=== PATIENT | male | born 1990 | race Caucasian/White ===

== ENCOUNTER 2017-04-08 18:17 | Emergency (ER) | payer SELFPAY ==
[2017-04-08 18:32] VITALS: BP 131/68; PULSE 80; TEMP 98.7; BMI 23.1
[2017-04-08] MEDS ORDERED: predniSONE 20 MG TABLET (UD) PO ONE (20:02)
[2017-04-08] MEDS ORDERED: ALBUTEROL SO4 2.5/IPRATROPIUM 0.5 INH SOL 3 ML VIAL.NEB. NEB ONE ×2 (20:02→20:19)
--- NOTE | 2017-04-08 20:11 | PDOC ---
History of Present Illness - General Chief Complaint: Cold Symptoms Stated Complaint: SHORT OF BREATH, COUGH Time Seen by Provider: 04/08/17 19:33 History Source: Patient Exam Limitations: No Limitations - History of Present Illness Initial Comments: 04/08/17 20:06 27 yo M with h/o childhood asthma has n't had sxs since 5 yo, here with c/o subjective fever, and cough and wheezing for 3 days. no longer having fever. no chilld. cough phlegm. does also have nasal congestion. no sick contacts. no h/o intubation or icu visits no current medication does not have an inhaler at home. no other rash. n/v or abd pain. no chest pain. Past History - Past Medical History Allergies/Adverse Reactions: Allergies Allergy/AdvReac Type Severity Reaction Status Date / Time No Known Allergies Allergy Verified 04/08/17 18:23 Home Medications: Ambulatory Orders Albuterol Sulfate Inhaler - [Ventolin HFA Inhaler -] 2 puff IH Q4H PRN #1 inhaler 04/08/17 Prednisone [Deltasone] 20 mg PO BID #8 tablet MDD 2 04/08/17 Asthma: Yes (CHILDHOOD) - Psycho/Social/Smoking Cessation Hx Anxiety: No Suicidal Ideation: No Smoking History: Never smoked Hx Alcohol Use: No Drug/Substance Use Hx: No Substance Use Type: None Review of Systems - Review of Systems Constitutional: No: Chills, Weakness HEENTM: No: Blurred Vision Respiratory: Yes: Shortness of Breath, Wheezing. No: Cough Cardiac (ROS): No: Chest Pain, Edema ABD/GI: No: Abdominal Distended : No: Burning, Dysuria Musculoskeletal: No: Back Pain Integumentary: No: Bruising All Other Systems: Reviewed and Negative *Physical Exam - Vital Signs Last Vital Signs Temp Pulse Resp BP Pulse Ox 98.7 F 80 16 131/68 96 04/08/17 18:18 04/08/17 18:18 04/08/17 18:18 04/08/17 18:18 04/08/17 18:18 - Physical Exam General Appearance: Yes: Nourished, Appropriately Dressed HEENT: positive: EOMI, GIANNA, Other (bilat nasal turbinate enlargment. throat clear no exudate. ) Neck: positive: Trachea midline Respiratory/Chest: positive: Wheezing (bilat exp wheezing. normal effort. good airflow). negative: Chest Tender, Respiratory Distress Cardiovascular: positive: Regular Rhythm, Regular Rate, S1, S2. negative: Edema Gastrointestinal/Abdominal: positive: Normal Bowel Sounds, Flat. negative: Tender Musculoskeletal: positive: Normal Inspection Extremity: positive: Normal Capillary Refill Integumentary: positive: Normal Color, Dry, Warm Neurologic: positive: Fully Oriented, Alert, Normal Mood/Affect ED Treatment Course - RADIOLOGY Radiology Studies Ordered: Category Date Time Status CHEST PA & LAT [RAD] Stat Radiology 04/08/17 20:03 Ordered Chest X-Ray Result: No Infiltrates Medical Decision Making - Medical Decision Making 04/08/17 20:10 27 yo M with h/o childhood asthma here wtih cough, wheezign and nasal congestionx 3 days. wheezing on exam afebrile here but reports fever. plan cxr r /o pna, neb steroids reassess. [facility] outpt tx with outpt inhaler and steroids. *DC/Admit/Observation/Transfer Diagnosis at time of Disposition: Asthma exacerbation - Discharge Dispostion Disposition: HOME Condition at time of disposition: Improved Admit: No - Prescriptions Prescriptions: Prednisone [Deltasone] 20 mg PO BID #8 tablet MDD 2 Albuterol Sulfate Inhaler - [Ventolin HFA Inhaler -] 2 puff IH Q4H PRN #1 inhaler PRN Reason: Wheezing - Referrals Referrals: Scott Cardona MD [Primary Care Provider] - - Patient Instructions Printed Discharge Instructions: Asthma -- Adult, Acute Bronchitis Additional Instructions: you can use flonase nasal spray one spray each nostril daily to help with nasal congestion. use albuterol 2 puffs every 4 hours as needed for wheezing or shortness of breathl. take prednisone 20 mg twice daily x 4 days starting . return for any worsening symtpoms or concerns. follow up with your primary doctor within one week call to schedule.
[2017-04-08] MEDS ORDERED: predniSONE 20 MG TABLET (UD) ONE (20:19)
== END 2017-04-08 21:05 | disposition home or self-care (01) ==
LOC: FER 18:17
PROC: 3E0F7GC Introduction of Other Therapeutic Substance into Respiratory Tract, Via Natural or Artificial Opening (ICD-10-PCS; principal; 2017-04-08)
DX: J45.901 Unspecified asthma with (acute) exacerbation (principal)
CPT/HCPCS: 71020-TC; 99282-25

== ENCOUNTER 2017-10-24 21:53 | Emergency (ER) | payer OTHER ==
[2017-10-24] MEDS ORDERED: ALBUTEROL SO4 2.5/IPRATROPIUM 0.5 INH SOL 3 ML VIAL.NEB. NEB ONE ×2 (22:12→22:25)
[2017-10-24] MEDS ORDERED: predniSONE 20 MG TABLET (UD) PO ONE (22:12)
--- NOTE | 2017-10-24 22:14 | PDOC ---
History of Present Illness - General Chief Complaint: Cold Symptoms Stated Complaint: CHEST/NASAL CONGESTION Time Seen by Provider: 10/24/17 21:56 History Source: Patient, Significant Other Exam Limitations: No Limitations - History of Present Illness Initial Comments: 10/24/17 22:14 27M PMHx asthma (no ETT, dx as child, only 2 exacerbations as an adult) p/w cc of "cold sxs" including productive cough, sore throat, "low grade fever" and chest tightness x 4-5 days. Denies LE swelling/tnd, no recent long distance travel. No CP at rest, only occurs after coughing. +2 kids at home with similar sxs. +flu shot this yr. Past History - Past Medical History Allergies/Adverse Reactions: Allergies Allergy/AdvReac Type Severity Reaction Status Date / Time No Known Allergies Allergy Verified 04/08/17 18:23 Home Medications: Ambulatory Orders Albuterol Sulfate Inhaler - [Ventolin HFA Inhaler -] 2 puff IH Q4H PRN #1 inhaler 04/08/17 Prednisone [Deltasone] 20 mg PO BID #8 tablet MDD 2 04/08/17 Prednisone [Prednisone 50 MG TABLETS] 50 mg PO DAILY 4 Days #4 tablet 10/24/17 Asthma: Yes (CHILDHOOD) - Suicide/Smoking/Psychosocial Hx Smoking History: Never smoked Hx Alcohol Use: No Drug/Substance Use Hx: No Substance Use Type: None Review of Systems - Review of Systems Able to Perform ROS?: Yes Is the patient limited Jamaican proficient: No Constitutional: Yes: Fever ("Low grade") HEENTM: Yes: Nose Congestion, Throat Pain Respiratory: Yes: See HPI ABD/GI: No: Nausea, Vomiting : No: Dysuria Musculoskeletal: No: Back Pain Neurological: No: Headache, Numbness Psychiatric: No: Anxiety, Depression All Other Systems: Reviewed and Negative *Physical Exam - Physical Exam General Appearance: Yes: Nourished, Appropriately Dressed. No: Apparent Distress HEENT: positive: EOMI, Normal ENT Inspection, Normal Voice, Symmetrical, Pharynx Normal, Nasal Congestion. negative: Pharyngeal Erythema, Tonsillar Exudate, Tonsillar Erythema Respiratory/Chest: positive: Lungs Clear. negative: Accessory Muscle Use, Labored Respiration Cardiovascular: positive: Regular Rhythm, Regular Rate Vascular Pulses: Femoral (R): 4+, Femoral (L): 4+, Carotid (R): 4+, Carotid (L) : 4+, Dorsalis-Pedis (R): 4+, Doralis-Pedis (L): 4+ Gastrointestinal/Abdominal: positive: Soft. negative: Tender Extremity: positive: Normal Inspection. negative: Tender, Swelling, Calf Tenderness Medical Decision Making - Medical Decision Making 10/24/17 22:17 27M with asthma p/w cough and chest tightness typical of asthma exacerbation in past. Likely URI which is triggering asthma. Does report productive cough with fever, will r/o pna with CXR. - nebs - prednisone x5d, first dose here - CXR - anticipate dc home with PMD f/u 10/24/17 23:34 Pt feels much improved s/p nebs and steroids. CXR reviewed - no e/o infiltrate/ effusion. Will dc home with prednisone x 4 more days to complete 5 day course. PRN albuterol (pt has MDI), f/u with PMD, return if sxs worsen. *DC/Admit/Observation/Transfer Diagnosis at time of Disposition: Asthma exacerbation - Discharge Dispostion Disposition: HOME Condition at time of disposition: Good Admit: No - Prescriptions Prescriptions: Prednisone [Prednisone 50 MG TABLETS] 50 mg PO DAILY 4 Days #4 tablet - Referrals - Patient Instructions Printed Discharge Instructions: DI for Viral Upper Respiratory Infection -- Adult Additional Instructions: You were seen in the ER for symptoms which are likely an upper respiratory virus , in addition to a mild asthma attack. The virus as well as change in weather is likely causing your asthma to act up. Take the prednisone as prescribed for the next 4 days, use the albuterol pump - 2 puffs every 4 hours, as needed. Follow up with your primary care doctor. A request has been placed in the system for you to follow up in the [facility] if you prefer. Return to the ER if your breathing/symptoms get worse. - Post Discharge Activity
[2017-10-24 22:15] VITALS: BP 141/68; PULSE 58; TEMP 98.5; BMI 23.5
[2017-10-24] MEDS ORDERED: predniSONE 20 MG TABLET (UD) ONE (22:24)
== END 2017-10-24 23:43 | disposition home or self-care (01) ==
LOC: FER 21:53
PROC: 3E0F7GC Introduction of Other Therapeutic Substance into Respiratory Tract, Via Natural or Artificial Opening (ICD-10-PCS; principal; 2017-10-24)
DX: J45.41 Moderate persistent asthma with (acute) exacerbation (principal)
CPT/HCPCS: 71046-TC-FY; 99282-25